=== PATIENT | female | born 1995 | race Caucasian/White ===

== ENCOUNTER → 2022-10-18 15:34 | Outpatient (CLI) | payer OTHER, SELFPAY ==
--- NOTE | 2022-10-18 15:35 | DI.US.S_ITS ---
PROCEDURE: US PELVIC COMPLETE INDICATIONS: DISPLACED IUD TECHNIQUE: Real-time scanning was performed of the pelvic organs, with image documentation. Additional endovaginal scanning was necessary due to incomplete visualization of the adnexal and endometrial structures by transabdominal scanning. COMPARISON: [facility], CR, XR ABDOMEN 1V, 10/18/2022, 15:36. FINDINGS: Uterus: Uterus is anteverted and normal in size at 7.6 x 3 x 4.4 cm. The myometrium is homogeneous. The endometrium measures 7 mm combined thickness. In this patient with this given history, scrutiny is given to the IUD. The IUD is not seen on these images. Ovaries: The right ovary measures 1.7 x 2.8 x 1.3 cm, with a calculated ovarian volume of 3.4 cc. The left ovary measures 2 x 2.7 x 1.8 cm, with a calculated ovarian volume of 4.9 cc. The ovaries have a normal sonographic appearance. Less than 12 follicles can be seen in each ovary. No adnexal masses are seen. Other: No pathologic free abdominal or pelvic fluid. IMPRESSION: No IUD is seen within the uterus. No IUD is seen elsewhere this ultrasound study. On the accompanying plain film, the IUD can be seen with a transverse orientation, just to the right of the midline, consistent with an extra-uterine location within the pelvis. We strive to produce accurate, complete, and clear reports of imaging services. To assist us in improving patient care, this report was composed using standard report templates and voice recognition software. Therefore, it may contain abnormal punctuation, insertions and/or omissions. Occasional wrong-word or sound-alike substitutions may occur. Though we review the report and make efforts to correct it, we do recommend that the report be read carefully in proper context to recognize any text inaccuracies. Dictated by: Carlos Pastrana M.D. on 10/18/2022 at 16:07 Approved by: Carlos Pastrana M.D. on 10/18/2022 at 16:10
--- NOTE | 2022-10-18 15:35 | DI.RAD.S_ITS ---
PROCEDURE: XR ABDOMEN 1V INDICATIONS: Displaced IUD not in utero per [facility] TECHNIQUE: One view of the abdomen acquired. COMPARISON: [facility], , PELVIC COMPLETE, 10/18/2022, 15:40. FINDINGS: Surgical changes and devices: Intrauterine device is projected over the mid pelvis which appears oriented transversely. Bowel: Bowel gas pattern is normal. Soft tissues: No suspicious abdominal calcifications. Visualized solid organ contours appear normal in size. Bones: No suspicious bony lesions. IMPRESSION: Intrauterine device projected over the mid pelvis which appears oriented transversely. Dictated by: Jordy Jeffers [facility] Interpreted: Alfredo Kelly MD on 10/18/2022 at 16:24 Approved by: Alfredo Kelly M.D. on 10/18/2022 at 16:44
== END ==
PROVIDERS: PCP Student in an Organized Health Care Education/Training Program; Referring Provider Obstetrics & Gynecology; Visit Provider Obstetrics & Gynecology
DX: T83.32XA Displacement of intrauterine contraceptive device, initial encounter (principal)
CPT/HCPCS: 74018; 76830; 76856

== ENCOUNTER → 2022-10-26 14:13 | Outpatient (CLI) | payer OTHER, SELFPAY ==
[2022-10-26 16:39] LABS: COVID19 -Nasal RAPID Negative (Negative)
== END ==
PROVIDERS: PCP Student in an Organized Health Care Education/Training Program; Referring Provider Obstetrics & Gynecology; Visit Provider Obstetrics & Gynecology
DX: Z01.812 Encounter for preprocedural laboratory examination (principal); Z20.822 Contact with and (suspected) exposure to COVID-19
CPT/HCPCS: 87635

== ENCOUNTER 2022-10-27 06:51 | Day surgery (SDC) | payer OTHER, SELFPAY ==
[2022-10-25 08:10] VITALS: BMI 27.1
[2022-10-27] VITALS (7 sets, daily range): BP systolic 91–120; BP diastolic 33–77; PULSE 68–102; RESP 12–18; TEMP 36.1–36.9; O2SAT 96–100; BMI 25.8
[2022-10-27] MEDS: LACTATED RINGERS 1,000 ML 42 ML IV (07:22)
--- NOTE | 2022-10-27 07:25 | P.HPOB_ITS ---
History of Present Illness History of Present Illness Narrative: Shea is a 27-year-old , LMP 09/11/2022, who presents in referral from [facility] due to displaced Mirena IUD that was placed in November 2020.? The patient was seen by her primary care in May 2022 and the Mirena IUD strings were not visible.? Abdominal flat plate 05/19/2022 shows an IUD in oblique horizontal position in the upper central pelvis with the T portion to the right and slightly superior to the proximal end which is slightly more inferiorly located.? Pelvic ultrasound 05/30/2022 demonstrated a normally anteverted uterus measuring 7-8 cm in length, 3.7 cm in width, and 3 cm in AP dimension.? There were no uterine masses or other myometrial abnormalities and the endometrial echo is normal measuring about 4 mm in maximal double wall thickness.? There is no IUD visible within the endometrial cavity or the uterus. ? Images of the studies are not available for review.? The patient has not experienced any significant abdominal pain since the IUD insertion or with the insertion itself. The imaging findings from [facility] have been confirmed by imaging here at [facility] and options reviewed for management of her displaced, intra abdominal intrauterine device and potential risks if the IUD is left in- situ.? After discussion regarding options will move forward with scheduling a laparoscopic removal of the intra-abdominal IUD.? She presents today for her scheduled surgery. [facility] Family History (Updated 09/19/22 @ 09:32 by Eamon Duran MD) Mother Breast cancer Social History household members: spouse and children Smoking Status: Never smoker alcohol intake: current Meds Home Medications and Allergies Home Medications Medication Instructions Recorded Confirmed Type No Known Home Medications 09/19/22 10/27/22 History Allergies Allergy/AdvReac Type Severity Reaction Status Date / Time No Known Drug Allergies Allergy Verified 10/27/22 07:07 Review of Systems Review of Systems Narrative: Problem-specific ROS positives included in HPI Exam Vital Signs (past 8 hours): - 10/27/22 07:11 Temperature 98.5 F Pulse Rate 68 Respiratory Rate 12 Blood Pressure 112/77 Pulse Oximetry 99 Oxygen Delivery Method Room Air Oxygen Delivery Method Room Air Const General: cooperative and comfortable Nutritional Appearance: average body habitus Orientation: alert and oriented x3 HENMT Head: normal to inspection, atraumatic and abrasion Ears: hearing grossly normal bilaterally Face and sinus: face symmetric Eyes General: appearance normal, both eyes and all related structures Conjunctivae: conjunctivae normal Sclera: sclerae normal EOM: EOM intact bilaterally Neck Neck: normal visual inspection Resp Effort & Inspection: normal respiratory effort and able to speak in complete sentences Auscultation: clear to auscultation bilaterally Cardio Rate: regular rate Rhythm: regular rhythm Heart Sounds: S1 normal, S2 normal and no murmurs GI Inspection: normal to inspection Palpation: soft and no hepatosplenomegaly External Female Exam: other (Deferred) Extrem General: no calf tenderness Psych Appearance: grossly normal Mental Status: mental status grossly normal Speech and Movement: speech and movement normal Mood: congruent mood Affect: normal affect Attitude: cooperative Thought Process: normal Thought Content: normal Judgment: judgment good Assessment & Plan Assessment and plan (1) Displacement of intrauterine contraceptive device, initial encounter: Status: Acute Plan Patient counseled regarding alternatives, risks, benefits, and potential complications associated with diagnostic laparoscopy for the retrieval of intra abdominal IUD. With full understanding of the above, a written consent was executed, signed, and witnessed this date. Time Spent With Patient Critical Care time: I spent a total of [] minutes of critical care time on this patient's care today; this time is exclusive of procedural time.
--- NOTE | 2022-10-27 07:29 | PM.PREOP ---
Pre-operative Note COVID-19 COVID-19 status: Negative Result date/Date tested (Pos, Neg/Pending): 10/26/22 Criteria for continued procedure: Non-surgical alternatives not available or appropriate per current SOC Interval Note History & Physical reviewed/Exam performed by Physician: Yes Changes to H&P: No
[2022-10-27] MEDS: BUPIVACAINE 0.5% W/ EPI (PF) 30 ML VIAL INJ (08:20)
--- NOTE | 2022-10-27 08:22 | SUR.OPER ---
Lithotomy on padded OR bed, head on pillow, arms secured on padded arm boards at <90 degrees abduction. Legs secured in padded yellow fins stirrups.
--- NOTE | 2022-10-27 08:57 | P.OP_ITS ---
Operative Date/Time/Diagnoses Date of procedure: 10/27/22 Time of procedure: 08:05 Pre-op diagnosis: Malpositioned (intra-abdominal) intrauterine device Post-op diagnosis: same Procedure & Clinicians Procedure: Procedures Operation Date: 10/27/22 07:45 Actual Procedure Side Surgeon stacy Laparoscopy with removal of intra-abdominal IUD Eamon Duran MD Indications: Shea is a 27-year-old , LMP , who presents in referral from [facility] due to displaced Mirena IUD that was placed in [facility] 2020.? The patient was seen by her primary care in May 2022 and the Mirena IUD strings were not visible.? Abdominal flat plate 05/19/2022 shows an IUD in oblique horizontal position in the upper central pelvis with the T portion to the right and slightly superior to the proximal end which is slightly more inferiorly located.? Pelvic ultrasound 05/30/2022 demonstrated a normally anteverted uterus measuring 7-8 cm in length, 3.7 cm in width, and 3 cm in AP dimension.? There were no uterine masses or other myometrial abnormalities and the endometrial echo is normal measuring about 4 mm in maximal double wall thickness.? There is no IUD visible within the endometrial cavity or the uterus.? Images of the studies are not available for review.? The patient has not experienced any significant abdominal pain since the IUD insertion or with the insertion itself.? The imaging findings from [facility] have been confirmed by imaging here at [facility] and options reviewed for management of her d isplaced, intra abdominal intrauterine device and potential risks if the IUD is left in-situ.? After discussion regarding options will move forward with scheduling a laparoscopic removal of the intra-abdominal IUD.? She presents today for her scheduled surgery. Surgeon: Eamon Duran Anesthesia Type: General Operative Notes Findings: Normal pelvic anatomy. An intact Mirena seem to be entangled inferior omentum. The remainder intra-abdominal anatomy is normal. Closure Type: primary Specimen(s): none Applied: catheter (Straight catheterization at the beginning of procedure) Estimated blood loss (mL): 5 Blood products transfused: none Procedure in detail: With the patient under satisfactory general anesthesia in the modified dorsal lithotomy position, perineum, and abdomen were prepped and draped in the usual manner for laparoscopy. A pre-surgical safety time-out then taken in accordance with [facility] Main OR protocols. No uterine manipulator was placed but instead attention was turned to infiltration the umbilicus with 0.5% Marcaine with epinephrine. A 1 cm vertical incision of the skin of the lower umbilicus was made and a Veress needle was used to insufflate the abdomen with carbon dioxide. Once appropriately insufflated, a 5 mm trocar and sleeve were placed in the umbilical incision and confirmation of correct placement was performed with her laparoscopic. A 2nd and 3rd 5 mm port was placed in the left and right mid quadrants in a similar manner and the abdomen was inspected carefully with the findings as noted above. The IUD was easily visualized and teased free of the omentum with a pair of atraumatic grasping forceps and once free of the omentum, intact IUD was removed through one of the 5 mm ports. The pelvis and abdomen were inspected again and there was no evidence of bleeding other abnormality. Point the pneumoperitoneum was vented and ports removed. The laparoscopy port incisions were then closed 4-0 Monocryl using inverted interrupted stitches and skin glue was applied to incision. Appropriate dressings were applied and the procedure terminated. Patient was awakened and transported to the PACU for a period of observation and recovery after having tolerated the procedure well. Complications: none Post-operative Condition: stable Disposition: PACU Plan for aftercare: Routine postoperative care with follow-up plan 2 weeks postop
[2022-10-27] MEDS: ONDANSETRON 4 MG/2 ML INJ IV (09:24)
[2022-10-27] MEDS: LACTATED RINGERS 1,000 ML 200 ML IV (09:25)
[2022-10-27] MEDS: ePHEDrine 50 MG/ML VIAL IM (11:07)
== END 2022-10-27 11:30 | disposition home or self-care (01) ==
PROVIDERS: PCP Student in an Organized Health Care Education/Training Program; Referring Provider Obstetrics & Gynecology; Visit Provider Obstetrics & Gynecology
PROC: (CPT 49320; principal; 2022-10-27 07:45)
DX: T83.32XA Displacement of intrauterine contraceptive device, initial encounter (principal)
CPT/HCPCS: 49329; 81025; J1100; J1885; J2250; J2405; J2704; J3010

== ENCOUNTER → 2023-09-07 10:16 | Outpatient (CLI) | payer OTHER, SELFPAY ==
--- NOTE | 2023-09-07 10:17 | DI.US.S_ITS ---
PROCEDURE: US OB <= 14 WEEKS FETUS INDICATIONS: dating and viability OUTSIDE/PRIOR DATING DATA: Last menstrual period (LMP): 06/26/2023. LMP-based estimated date of delivery (EDILSON): 04/01/2024. First dating scan (date and location): 09/07/2023. Estimated date of delivery (EDILSON) from first dating scan: 04/07/2024. The calculations are made using the ultrasound EDILSON of 04/07/2024. TECHNIQUE: Real-time scanning was performed of the fetus and maternal pelvic organs, with image documentation. COMPARISON: None. FINDINGS: Embryo: [place]-rump length measures 2.7 cm, 9 weeks 4 days Heart rate: 157 beats per minute Maternal organs: Right ovary unremarkable. Left ovary not identified. IMPRESSION: Living early 1st trimester intrauterine , with crown-rump length and heartbeat. We strive to produce accurate, complete, and clear reports of imaging services. To assist us in improving patient care, this report was composed using standard report templates and voice recognition software. Therefore, it may contain abnormal punctuation, insertions and/or omissions. Occasional wrong-word or sound-alike substitutions may occur. Though we review the report and make efforts to correct it, we do recommend that the report be read carefully in proper context to recognize any text inaccuracies. Dictated by: Geo Knutson M.D. on 09/07/2023 at 12:55 Approved by: Geo Knutson M.D. on 09/07/2023 at 12:58
== END ==
PROVIDERS: PCP Student in an Organized Health Care Education/Training Program; Referring Provider Obstetrics & Gynecology; Visit Provider Obstetrics & Gynecology
DX: Z34.81 Encounter for supervision of other normal pregnancy, first trimester (principal); Z3A.09 9 weeks gestation of pregnancy
CPT/HCPCS: 76801; 93976

== ENCOUNTER → 2023-10-03 10:43 | Outpatient (CLI) | payer OTHER, SELFPAY ==
[2023-10-03 12:18] LABS: Add Manual Diff / Slide Review NO; Basophils Absolute Auto 0 /uL (0-100); Basophils Percent Auto 0.5 % (0-2); Eosinophils Absolute Auto 0 /uL (0-450); Eosinophils Percent Auto 0.4 % (2-4); Lymphocytes Absolute Auto 1400 /uL (1100-4500); Lymphocytes Percent Auto 13.9 % (25-40); Mean Corpuscular HGB Conc 33.4 % (30-36); Mean Corpuscular Hemoglobin 27.5 PG (26-34); Mean Corpuscular Volume 82.5 fL (80-100); Monocytes Absolute Auto 800 /uL (0-900); Monocytes Percent Auto 7.5 % (3-14); Neutrophils Absolute Auto 7900 /uL (1500-7000); Neutrophils Percent Auto 77.7 % (50-75); Platelet Count 399 X10^3/uL (150-400); Red Blood Cell Count 4.36 X10^6/uL (4.0-5.2); Red Cell Distribution Width 13.8 % (11.6-14.8); White Blood Cell Count 10.1 X10^3/uL (4.5-11.0)
[2023-10-03 12:44] LABS: Alanine Aminotransferase 23 IU/L (<35); Aspartate Aminotransferase 21 IU/L (14-36); BUN Creatinine Ratio 17.3 (6-22); Blood Urea Nitrogen 9 mg/dL (7-17); Estimated Glomerular Filt Rate > 60 mL/min (>60); Uric Acid 2.2 mg/dL (2.5-6.2)
[2023-10-03 20:19] LABS: Urine N gonorrhoeae NOT DETECTED
[2023-10-03 20:23] LABS: Urine Chlamydia NOT DETECTED
[2023-10-04 06:36] LABS: RPR Screen Non Reactive (Non Reactive)
[2023-10-04 08:54] LABS: Varicella IgG Antibody 659 index (Immune >165)
[2023-10-04 16:38] LABS: HIV 1 & 2 Ab/Ag 4th Gen Combo NEGATIVE (NEGATIVE); Hep C Virus Ab w/Reflex Quant NEGATIVE s/c (NEGATIVE); Hepatitis B Surface Antigen NEGATIVE s/c (NEGATIVE); Rubella Antibody IgG 14.5 IU/mL (>15)
== END ==
PROVIDERS: PCP Student in an Organized Health Care Education/Training Program; Referring Provider Obstetrics & Gynecology; Visit Provider Obstetrics & Gynecology
DX: Z34.80 Encounter for supervision of other normal pregnancy, unspecified trimester (principal); Z87.59 Personal history of other complications of pregnancy, childbirth and the puerperium; Z34.81 Encounter for supervision of other normal pregnancy, first trimester; Z3A.13 13 weeks gestation of pregnancy
CPT/HCPCS: 36415; 80055; 82565; 84450; 84460; 84520; 84550; 86787; 86803; 86850; 86900; 86901; 87389; 87491; 87591

== ENCOUNTER → 2023-11-02 14:14 | Outpatient (CLI) | payer OTHER, SELFPAY ==
[2023-11-08 21:42] LABS: AFP, Serum 28.9 ng/mL (.); Estriol, Free 1.76 ng/mL (.); Inhibin A, MoM 0.85 (.); Maternal Ethnicity Caucasian (.); Maternal Weight 165 lbs (.); Number of Fetuses No (.); OSBR Risk 1 IN 10000 (.); Results Report (.); Test Results *Screen Negative* (.); hCG, Serum 26693 mIU/mL (.)
== END ==
PROVIDERS: PCP Student in an Organized Health Care Education/Training Program; Referring Provider Obstetrics & Gynecology; Visit Provider Obstetrics & Gynecology
DX: Z34.02 Encounter for supervision of normal first pregnancy, second trimester (principal); Z3A.17 17 weeks gestation of pregnancy
CPT/HCPCS: 36415; 82105; 82677; 84702; 86336

== ENCOUNTER → 2023-11-21 10:14 | Outpatient (CLI) | payer OTHER, SELFPAY ==
--- NOTE | 2023-11-21 10:30 | DI.US.S_ITS ---
PROCEDURE: US OB >= 14 WEEKS FETUS INDICATIONS: 20 week anatomy scan OUTSIDE/PRIOR DATING DATA: Last menstrual period (LMP): 06/26/2023. LMP-based estimated date of delivery (EDILSON): 04/01/2024. First dating scan (date and location): 09/07/2023. Estimated date of delivery (EDILSON) from first dating scan: 04/07/2024. The calculations are made using the clinical EDILSON of 04/01/2024. TECHNIQUE: Real-time scanning was performed of the fetus, with image documentation and biometric measurements. Endovaginal scanning: Performed COMPARISON: None. FINDINGS: General: A single living intrauterine gestation is present. Presentation: Vertex. Placenta: Placental position is posterior , without previa. Amniotic fluid index: 15.9 cm, normal range is 5-24 cm. Single deepest vertical pocket is 4.8 cm. heart rate: 140 beats per minute. Maternal cervical canal: 4.7 cm long. Normal lower limit is 2.5 cm. biometrics: Biparietal diameter: 4.8 centimeters, 20 weeks 4 days Head circumference: 18.2 centimeters, 20 weeks 4 days Abdominal circumference: 15.9 centimeters, 21 weeks 0 days Femur length: 3.5 centimeters, 21 weeks 1 day Clinically estimated gestational age: 21 weeks 1 day Composite gestational age from present scan: 20 weeks 6 days Estimated weight and percentile: 393 grams, 38th percentile Anatomic survey: Neuro: Ventricles are non-dilated at less than 10 mm. Complex choroid plexus cyst measuring 7 x 4 x 5 millimeters. Cisterna magna is normal at 3-11 mm. Cerebellum is normal in size and morphology. Nuchal skin fold: Normal at less than 6 mm between 14-21 weeks gestational age. Face: Nose and lips, facial profile are normal. Spine: No evidence for spina bifida. Heart: 4-chambered heart is present, with normal ventricular outflow tracts. Diaphragm: Diaphragm is intact. Stomach: Left-sided stomach is present. Kidneys: No hydronephrosis. Normal is less than 5 mm in 2nd trimester, less than 7 mm in 3rd trimester. Cord: 3-vessel cord has orthotopic insertion. Bladder: Normal in size. Extremities: All 4 extremities identified. IMPRESSION: 1. Single live intrauterine consistent with 20 weeks and 6 days. 2. Left complex choroid plexus cyst measuring 7 millimeters. In isolation, simple choroid plexus cysts have no associated risk of aneuploidy. However, given complex nature of the cyst, recommend aneuploidy screening and follow-up ultrasound. 3. The remainder of the anatomic survey is within normal limits. We strive to produce accurate, complete, and clear reports of imaging services. To assist us in improving patient care, this report was composed using standard report templates and voice recognition software. Therefore, it may contain abnormal punctuation, insertions and/or omissions. Occasional wrong-word or sound-alike substitutions may occur. Though we review the report and make efforts to correct it, we do recommend that the report be read carefully in proper context to recognize any text inaccuracies. Dictated by: Bernardino Sosa M.D. on 11/21/2023 at 15:24 Approved by: Bernardino Sosa M.D. on 11/21/2023 at 15:31
== END ==
LOC: US 10:14
PROVIDERS: PCP Student in an Organized Health Care Education/Training Program; Referring Provider Obstetrics & Gynecology; Visit Provider Obstetrics & Gynecology
DX: Z34.82 Encounter for supervision of other normal pregnancy, second trimester (principal); Z3A.20 20 weeks gestation of pregnancy
CPT/HCPCS: 76811

== ENCOUNTER → 2024-01-25 11:09 | Outpatient (CLI) | payer OTHER, SELFPAY ==
[2024-01-25 12:57] LABS: Hematocrit 28.5 % (36-46); Hemoglobin 9.5 g/dL (12.0-16.0)
[2024-01-25 13:29] LABS: GTT (PREG) 1 Hour PP 50gm Dose 74 mg/dL (76-139)
== END ==
PROVIDERS: PCP Student in an Organized Health Care Education/Training Program; Referring Provider Obstetrics & Gynecology; Visit Provider Obstetrics & Gynecology
DX: O35.03X0 Maternal care for (suspected) central nervous system malformation or damage in fetus, choroid plexus cysts, not applicable or unspecified (principal); Z3A.27 27 weeks gestation of pregnancy
CPT/HCPCS: 82950; 85014; 85018

== ENCOUNTER → 2024-02-06 11:27 | Outpatient (CLI) | payer OTHER, SELFPAY ==
[2024-02-08 12:47] LABS: HEMOLYSIS < 15 (0-50); Iron 70 ug/dL (37-170)
[2024-02-08 12:59] LABS: Percent Iron Saturation 13 % (15-50); Total Iron Binding Capacity 543 ug/dL (265-497); Transferrin 472 mg/dL (206-381)
== END ==
PROVIDERS: PCP Student in an Organized Health Care Education/Training Program; Referring Provider Obstetrics & Gynecology; Visit Provider Obstetrics & Gynecology
DX: O99.019 Anemia complicating pregnancy, unspecified trimester (principal)
CPT/HCPCS: 83540; 83550

== ENCOUNTER → 2024-03-14 14:15 | Outpatient (CLI) | payer OTHER, SELFPAY ==
[2024-03-15 15:38] LABS: Strep Grp B PCR NEG for Grp B Strep
== END ==
PROVIDERS: PCP Student in an Organized Health Care Education/Training Program; Visit Provider Obstetrics & Gynecology
DX: Z34.83 Encounter for supervision of other normal pregnancy, third trimester (principal); Z3A.36 36 weeks gestation of pregnancy
CPT/HCPCS: 87653

== ENCOUNTER → 2024-03-28 14:00 | Outpatient (CLI) | payer OTHER, SELFPAY | PROVIDERS: PCP Student in an Organized Health Care Education/Training Program; Visit Provider Obstetrics & Gynecology | DX: R82.998 Other abnormal findings in urine (principal) | CPT/HCPCS: 87086 ==

== ENCOUNTER → 2024-04-02 12:09 | Outpatient (CLI) | payer OTHER, SELFPAY | PROVIDERS: PCP Student in an Organized Health Care Education/Training Program; Visit Provider Obstetrics & Gynecology | DX: R82.998 Other abnormal findings in urine (principal) | CPT/HCPCS: 87086 ==

== ENCOUNTER 2024-04-08 10:49 | Outpatient (CLI) | payer OTHER, SELFPAY | END 2024-04-08 11:40 | disposition home or self-care (01) | LOC: LABOR 11:14 → OB 04-09 11:44 | PROVIDERS: PCP Student in an Organized Health Care Education/Training Program; Referring Provider Obstetrics & Gynecology; Visit Provider Obstetrics & Gynecology | DX: O48.0 Post-term pregnancy (principal); Z3A.40 40 weeks gestation of pregnancy | CPT/HCPCS: 59025; G0378; G0379 ==

== ENCOUNTER 2024-04-10 16:19 | Inpatient (IN) | payer OTHER, SELFPAY ==
--- NOTE | 2024-04-10 17:41 | P.HPOB_ITS ---
OB HPI Date/Time Date of admission: 04/10/24 Date Patient Seen: 04/10/24 Time Patient Seen: 17:41 History of Present Condition Chief complaint: DELIVERY : 2 Para: 1 Estimated Date of Delivery: 04/07/24 Estimated Gestational Age (weeks): 40w3d Narrative: Shea Araujo is a 28 year old presenting with SROM. ROm was at 1500 wtih clear fluid. She was lying in bed when she felt fluid upon turning over. She soaked through multiple pairs of underwear and decided to come to triage. She has had a complicated by hx of Pre-E on ASA but no signs of pre-E with this . BPs normotensive on arrival. She was checked in clinic 2 days ago at which time she was fingertip/85/-1/posterior/intermediate (BS=7). Since time of rupture she has started feeling contractions and they are getting stronger. Now ocuring every 4-5 min regularly Indications Other reason(s) for admission: Spontaneous rupture of membranes at term History of Present care: good care Dating criteria: based on 1st trimester US only Obstetrical complications: none Medical complications: none Preadmission Labs Blood type: A (+) positive -: Antibody screen: negative, Cystic fibrosis screen: unknown, GBS status: negative, HBsAG: negative, HIV: negative, HSV 1: negative, HSV 2: negative and RPR/VDLR: negative -: Chlamydia screen: not detected and Gonorrhea screen: not detected -: Rubella: not immune and Varicella: immune HCT: 98 HCAB: negative PAP: Normal Quad screen: Normal 1 hr GTT: 74 Prior (ies) History: One prior , delivery in [place]. Complicated by Pre-E. otherwise uncomplicated Evaluation Evaluation Baseline heart rate: 120 Variability: Moderate (11-25) monitor accelerations: Present Monitor Decelerations: Absent Contraction Frequency (minutes): 4 Category of Tracing: Reactive Status: Category l Dilation (cm): 1 Effacement (%): 80 Dilation: 1-2 cm Effacement: >/=80% station: -1 [facility] Medical History (Updated 03/05/24 @ 14:36 by Eamon Duran MD) Clavicle fracture (~1997) Displacement of intrauterine contraceptive device, initial encounter Perforation of uterus PONV (postoperative nausea and vomiting) (~2022) Surgical History (Updated 11/14/22 @ 17:16 by Eamon Duran MD) History of laparoscopy Family History (Updated 09/05/23 @ 10:10 by Anastasiia Roach RN) Mother Breast cancer Hypothyroidism Father Hypertension Hyperlipidemia Grandmother Myasthenia gravis Aunt Hypothyroidism Grandmother Rheumatoid arthritis Bladder cancer Aunt Anxiety Depression Grandfather Heart disease S/P CABG x 4 Social History marital status: number of children: 1 household members: spouse and children lives independently: Yes caregiver/support person: Yes housing: house pets and animals: Yes (1 dog) education level: college (bachelor's degree) 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[employer]) current occupational exposures/hazards: No special marci needs: No travel history: recent (domestic only) seatbelt use: always helmet use: Yes water heater temp set < 120 deg: Yes working smoke detector in home: Yes fire extinguisher in home: No carbon monox detector in home: Yes firearms in home: Yes firearms unloaded and locked: Yes do you feel safe at home: Yes Smoking Status: Never smoker second hand exposure: No alcohol intake: former (occasionally when not ) substance use type: does not use during the past year weight has: remained stable well-balanced diet: daily or most days daily servings fruits/ve-4 caffeine: Yes (occasional tea or diet soda) Type(s) of exercise: walking and bicycling frequency: 1-2 times per week Meds Home Medications and Allergies Home Medications Medication Instructions Recorded Confirmed Type vitamin-ferrous sulfate tab PO 09/05/23 04/08/24 History 27 mg iron-folic acid 0.8 mg tablet ondansetron 8 mg disintegrating 8 mg PO Q8H PRN nausea and 10/03/23 04/08/24 Rx tablet vomiting #20 tabs aspirin 81 mg tablet,delayed 81 mg PO DAILY 03/05/24 04/08/24 History release (Adult Aspirin Regimen) omeprazole magnesium 10 mg oral 10 mg PO DAILY 03/05/24 04/08/24 History suspension,delayed release (Prilosec) Allergies Allergy/AdvReac Type Severity Reaction Status Date / Time No Known Drug Allergies Allergy Verified 04/08/24 10:29 Review of Systems Review of Systems Narrative: No nausea No WOLFE No Vision changes No RUQ pain + LOF OB Exam Vital signs Blood Pressure: 129/70 Pulse Rate: 88 Temperature: 97.2 F Narrative Exam Narrative: GEN: Healthy appearing, well-developed, NAD, sitting on birthing ball eating dinner PSYCH: Good Judgment. AOx3. Normal memory, mood, and affect HEENT: -Head: NC/AT -Eyes: No discharge or redness CV: warm and well perfused LUNGS: breathing comfortably on RA ABd: gravid SKIN: Warm, well perfused. No skin rashes or abnormal lesions MSK: No deformities NEURO: No focal deficits Assessment and Plan Assessment and Plan Assessment and Plan narrative: Shea Araujo is a 28 year old presenting with SROM. ROm was at 1500 with clear fluid. - Expectant management - If no change in 3-4 hours will start Pitocin - GBS negative, no ppx needed - CBC, CMP, TS pending - Trend BPs
[2024-04-10 17:49] LABS: Add Manual Diff / Slide Review NO; Basophils Absolute Auto 0 /uL (0-100); Basophils Percent Auto 0.3 % (0-2); Eosinophils Absolute Auto 0 /uL (0-450); Eosinophils Percent Auto 0.2 % (2-4); Hematocrit 30.4 % (36-46); Hemoglobin 9.8 g/dL (12.0-16.0); Lymphocytes Absolute Auto 1800 /uL (1100-4500); Lymphocytes Percent Auto 17.1 % (25-40); Mean Corpuscular HGB Conc 32.4 % (30-36); Mean Corpuscular Volume 77.1 fL (80-100); Monocytes Absolute Auto 700 /uL (0-900); Monocytes Percent Auto 6.6 % (3-14); Neutrophils Absolute Auto 8100 /uL (1500-7000); Neutrophils Percent Auto 75.8 % (50-75); Platelet Count 356 X10^3/uL (150-400); Red Blood Cell Count 3.95 X10^6/uL (4.0-5.2); Red Cell Distribution Width 16.9 % (11.6-14.8); White Blood Cell Count 10.7 X10^3/uL (4.5-11.0)
[2024-04-10 18:20] VITALS: BP 129/70; PULSE 88; TEMP 36.2
[2024-04-11] MEDS: ONDANSETRON 4 MG/2 ML INJ IV ×2 (03:00→08:44)
[2024-04-11] MEDS: OXYTOCIN PREMIX 30 UNIT/500 ML PLAST..BAG IV (04:47)
[2024-04-11] MEDS: LACTATED RINGERS 1,000 ML 100 ML IV ×2 (04:47→08:44)
[2024-04-11] MEDS: METOCLOPRAMIDE 10 MG/2 ML INJ 5 MG IV (06:09)
--- NOTE | 2024-04-11 07:21 | P.PCN_ITS ---
[facility] Pre-procedure PMH/ROS narrative: term SROM, no complications. Hx of preeclampsia with previous . No S/S this . Normotensive. ASA Class: II Labs: Hct 30.4 % (36-46) L 04/10/24 17:37 Plt Count 356 X10^3/uL (150-400) 04/10/24 17:37 Medications: Current Medications Generic Name Dose Route Start Last Admin Trade Name Freq PRN Reason Stop Dose Admin Carboprost Tromethamine 250 mcg 04/10/24 17:37 Carboprost 250 Mcg/Ml Ampul IM Q90M PRN Bleeding Diphenhydramine HCl 25 mg 04/11/24 07:20 Diphenhydramine 50 Mg/Ml Vial IV Q10M PRN Pruritis Oxytocin/Lactated Ringer's 30 unit in 500 mls @ 200 mls/hr 04/10/24 17:37 Oxytocin Premix IV CONT PRN Bleeding Protocol Tranexamic Acid 1,000 mg/ 100 mls @ 200 mls/hr 04/10/24 17:37 Sodium Chloride IV NOW PRN Bleeding Lactated Ringer's 1,000 mls @ 100 mls/hr 04/10/24 17:45 04/11/24 04:47 Lactated Ringers IV 100 mls/hr CONT LYNN Administration Oxytocin/Lactated Ringer's 30 unit in 500 mls @ 2 mls/hr 04/10/24 18:10 04/11/24 04:47 Oxytocin Premix IV 2 milliunit/min TITRATE LYNN 2 mls/hr Administration Protocol 2 MILLIUNIT/MIN FENT 2MCG/ML BUPIV 0.125% EPI 200 mcg in 100 mls @ 6 mls/hr 04/11/24 07:30 Fentanyl/Bupiv/Ns 2mcg/Ml - 0.125% EPIDURAL CONT LYNN Lidocaine HCl 20 ml 04/10/24 17:37 Lidocaine 1% 20 Ml INJ INTRA-OP PRN Post Delivery Methylergonovine Maleate 0.2 mg 04/10/24 17:37 Methylergonovine 0.2 Mg Tablet PO Q6HR PRN Heavy Bleeding Methylergonovine Maleate 0.2 mg 04/10/24 17:37 Methylergonovine 0.2 Mg/Ml Vial IM NOW PRN Bleeding Metoclopramide HCl 5 mg 04/11/24 05:51 04/11/24 06:09 Metoclopramide 10 Mg/2 Ml Inj IV 5 mg Q6HR PRN Administration Nausea And Vomiting Misoprostol 800 mcg 04/10/24 17:37 Misoprostol 200 Mcg Tablet IN NOW PRN Bleeding Misoprostol 400 mcg 04/10/24 17:37 Misoprostol 200 Mcg Tablet SL NOW PRN Bleeding Nalbuphine HCl 2.5 mg 04/11/24 07:20 Nalbuphine 20 Mg/Ml Ampul IV Q10M PRN Pruritis Naloxone HCl 0.2 mg 04/10/24 17:37 Naloxone 0.4 Mg/Ml Vial IV Q2MIN PRN Opiate Reversal Ondansetron HCl 4 mg 04/10/24 18:31 04/11/24 03:00 Ondansetron 4 Mg/2 Ml Inj IV 4 mg Q4HR PRN Administration Nausea And Vomiting Oxytocin 10 unit 04/10/24 17:37 Oxytocin 10 Unit/Ml Vial IM NOW PRN Bleeding Sodium Chloride 10 ml 04/10/24 21:00 Sodium Chloride 0.9% Flush IV BID LYNN Sodium Chloride 10 ml 04/10/24 17:37 Sodium Chloride 0.9% Flush IV PRN PRN Flush Sodium Chloride 10 ml 04/11/24 09:00 Sodium Chloride 0.9% Flush IV BID LYNN Sodium Chloride 10 ml 04/11/24 07:20 Sodium Chloride 0.9% Flush IV PRN PRN Flush Allergies: Allergies Allergy/AdvReac Type Severity Reaction Status Date / Time No Known Drug Allergies Allergy Verified 04/08/24 10:29 Procedure Insertion date: 04/11/24 Insertion time: 07:36 Prep/Local: betadine x3 and 1% lidocaine Interspace: L3-4 Patient position: sitting Needle: 18 gauge Kodabletead (CSE: 27g Pencan through Hustead, clear CSF, 1mL 0.25% MPF bupiv.) Loss of resistance with: saline EVELINA at (cm): 5 Catheter placed at SKIN (cm): 11 Catheter in SPACE (cm): 6 Insertion: No CSF, No Blood, No Paresthesia with insertion, No Paresthesia with injection and No Test dose reaction Initial Medications TEST DOSE time: 07:37 TEST DOSE: 1.5% lidocaine with epinephrine 1:200k (mL): 3 BOLUS DOSE time: 07:47 BOLUS DOSE (mL): 4 BOLUS DOSE med: other (infusate) Infusion INFUSION: 0.125% bupivacaine and with fentanyl 2 mcg/mL Initial rate (mL/hr): 8 Subsequent interventions: PCEA@8+4 Post-procedure Anesthesia date START: 04/11/24 Anesthesia time START: 07:27 Anesthesia date END: 04/11/24 Anesthesia time END: 13:43 Post-procedure Anesthesia Assessment: Yes CV function: HR/BP stable, Yes Resp function: RR/sat/airway adequate, Yes Post-op hydration adequate, Yes Pain control adequate, Yes Nausea & vomiting absent, Yes Temperature > 36 C, Yes Mental status appropriate and No Anesthesia complications
--- NOTE | 2024-04-11 13:49 | PM.OBPRVD ---
Labor & Delivery Delivery date: 04/11/24 Intrapartal Events: None Cervical ripening method: none Induction method: none Delivery augmentation: pitocin Delivery monitor: external FHT and external uterine Route of delivery: Episiotomy description: None L&D Laceration Description: Periurethral - 1st Degree Estimated blood loss (mL): 275 Anesthesia Type: Epidural Complications: None Narrative: Following a 21 minute 2nd stage, the patient delivered spontaneously over an intact perineum a viable male with Apgars of 9/9 and a weight of 8 lb 8.9 oz (3881 g) a single loose nuchal cord was noted and reduced with delivery of the shoulders. No shoulder dystocia was encountered. Skin to skin contact was initiated immediately upon delivery. Delayed cord clamping performed. Once the umbilical cord was doubly clamped and cut, a sample of cord blood was submitted for routine studies. Delivery of the placenta was accomplished with gentle cord traction and suprapubic countertraction. Intravenous Pitocin was initiated following separation bleed and post delivery bleeding was easily brought under control. Inspection of the placenta following delivery showed it to be intact with a previously undiagnosed marginal insertion. Inspection of the perineum showed no significant lacerations but a very superficial left-sided periurethral abrasion which did not require reapproximation and was not bleeding. Sponge, instrument, and needle count was correct at the completion of the delivery process which was well tolerated by both mother and baby. Baby 1: Infant gender: Male Presentation: vertex Position: Left Occiput Anterior Placenta delivery description: Spontaneous and Abnormal Configuration (Marginal cord insertion) Cord Vessel Description: 3 Vessels and Nuchal Cord (Loose, x1) score (1 min): 9 weight: 8 lb 8.898 oz Plan for aftercare: Routine care
[2024-04-11] MEDS: IBUPROFEN 600 MG TABLET PO (19:46)
[2024-04-12] MEDS: ACETAMINOPHEN 325 MG TABLET 650 MG PO ×2 (02:40→14:54)
[2024-04-12 06:15] LABS: Add Manual Diff / Slide Review NO; Basophils Absolute Auto 100 /uL (0-100); Basophils Percent Auto 0.5 % (0-2); Eosinophils Absolute Auto 100 /uL (0-450); Eosinophils Percent Auto 0.6 % (2-4); Hematocrit 28.8 % (36-46); Hemoglobin 9.3 g/dL (12.0-16.0); Lymphocytes Absolute Auto 1900 /uL (1100-4500); Lymphocytes Percent Auto 15.6 % (25-40); Mean Corpuscular HGB Conc 32.2 % (30-36); Mean Corpuscular Hemoglobin 24.5 PG (26-34); Mean Corpuscular Volume 76.2 fL (80-100); Monocytes Absolute Auto 900 /uL (0-900); Monocytes Percent Auto 7.5 % (3-14); Neutrophils Absolute Auto 9100 /uL (1500-7000); Neutrophils Percent Auto 75.8 % (50-75); Platelet Count 308 X10^3/uL (150-400); Red Blood Cell Count 3.78 X10^6/uL (4.0-5.2); Red Cell Distribution Width 17.2 % (11.6-14.8)
[2024-04-12] MEDS: DOCUSATE 100 MG CAPSULE PO (08:05)
[2024-04-12] MEDS: IBUPROFEN 600 MG TABLET PO (08:05)
--- NOTE | 2024-04-12 10:06 | P.DS_ITS ---
Discharge Providers Provider Date of admission: 04/10/24 16:19 Discharge Date: 04/12/24 Primary care physician: Kelby Hamm MD Consults: 04/10/24 17:37 Consult to Anesthesiology Urgent Comment: Consulting Provider: Gary Orr Reason for consultation: Epidural 04/12/24 13:46 Consult to Senior Information Developer Routine Comment: Discharge provider: Eamon Duran MD Summary Hospital Course Date Patient Seen: 04/12/24 Time Patient Seen: 10:07 Diagnoses: Intrauterine gestation, 40+ 4 weeks, delivered by spontaneous vaginal GBS negative status Hospital Course: Late on the evening of 04/10/2024, [place] was admitted with spontaneous rupture of membranes and permitted to enter labor spontaneously. Her contractions however decreased in frequency and intensity and early on the morning of 04/11/2024, Pitocin augmentation was initiated. Continuous lumbar epidural anesthesia was obtained and provided excellent relief. She delivered on the afternoon of 04/11/2024 a viable male infant with Apgars of 9/9 and weight of 3881 g (8 lb 8.9 oz). She sustained a very superficial left periurethral abrasion which did not require repair. Following delivery both mother and baby have done extremely well with the mother experiencing prompt return of bowel and bladder function, she is ambulating independently, tolerating a regular diet, and her pain is well relieved with oral pain medication. She will be discharged at this time to home in an afebrile normotensive condition after counseling regarding precautionary symptoms, limitations of activity, and plans for follow- up which will be in 6 weeks. Medications at discharge will include resumption of all preadmission medications and she will use [id number] Tylenol as well as [id number] ibuprofen as needed for pain Peripartum Data Delivery Method: Natural Vaginal Laceration Description: Periurethral - 1st Degree Episiotomy description: None Procedures: Continuous lumbar epidural Spontaneous vaginal delivery complications: none [place] 1: Gender: Male Disposition of : home Status at Discharge Cognitive/behavioral status at discharge: oriented Functional status at discharge: independent ambulation Overall status at discharge: patient is progressing back to baseline Time Spent with Patient Time attestation: Total time spent providing and/or coordinating discharge services: Time spent: Less than 30 minutes Objective Labs 04/12/24 06:07 Labs: Laboratory Results - last 24 hr 04/12/24 06:07 WBC 12.0 H RBC 3.78 L Hgb 9.3 L Hct 28.8 L MCV 76.2 L MCH 24.5 L MCHC 32.2 RDW 17.2 H Plt Count 308 Neut % (Auto) 75.8 H Lymph % (Auto) 15.6 L [place] % (Auto) 7.5 Eos % (Auto) 0.6 L Baso % (Auto) 0.5 Neut # (Auto) 9100 H Lymph # (Auto) 1900 [place] # (Auto) 900 Eos # (Auto) 100 Baso # (Auto) 100 Exam Const General: cooperative and comfortable Nutritional Appearance: average body habitus Orientation: alert and oriented x3 HENMT Head: normal to inspection, atraumatic and abrasion Ears: hearing grossly normal bilaterally Face and sinus: face symmetric Eyes General: appearance normal, both eyes and all related structures Conjunctivae: conjunctivae normal Sclera: sclerae normal EOM: EOM intact bilaterally Neck Neck: normal visual inspection Resp Effort & Inspection: normal respiratory effort and able to speak in complete sentences GI Inspection: normal to inspection Palpation: soft and no hepatosplenomegaly External Female Exam: other (No significant bleeding noted) Extrem General: no calf tenderness Psych Appearance: grossly normal Mental Status: mental status grossly normal Speech and Movement: speech and movement normal Mood: congruent mood Affect: normal affect Attitude: cooperative Thought Process: normal Thought Content: normal Judgment: judgment good Discharge Plan Discharge Plan Patient Disposition: Home Provider Discharge Comment: Please review the written instructions you received when you were discharged from the hospital. Your follow-up appointment is scheduled for 6 weeks after delivery and I look forward to seeing you then. If however in the meanwhile you have any issues, concerns, or questions, please contact me either through the office phone at [phone], or via the patient portal. Discharge orders & Medications Prescriptions: Continued Prilosec 10 mg susp,delayed release for recon 10 mg PO DAILY aspirin [Adult Aspirin Regimen] 81 mg tablet,delayed release (DR/EC) 81 mg PO DAILY ondansetron 8 mg tablet,disintegrating 8 mg PO Q8H PRN (Reason: nausea and vomiting) Qty: 20 3RF vit-ferrous sulfat-FA 27 mg iron- 0.8 mg tablet PO Follow up/Referrals: Eamon Duran MD [Physician] - 05/22/24 1:30 pm Discharge Health Status Multidrug resistant organism: No MDRO Diet/Activity/Treatments Diet: Diet as Tolerated Activity: As tolerated Other treatments: [id number] Tylenol and/ or ibuprofen may be used as needed for pain relief. [id number]-[id number]-swseeym stool softeners and/ or MiraLax may be used as needed for constipation. Skin/Wound/Dressing Care Report to your healthcare provider any signs of infection, such as:: chills, fever, increased pain, unusual drainage and unusual redness Dressing: N/A Visit Report/Discharge Packet Instructions: DI for Labor and Delivery, Vaginal , DI for and Nipple Soreness Discharge Data Primary Care Provider: Kelby Hamm
[2024-04-12 14:18] VITALS: BP 129/70
[2024-04-12 15:32] VITALS: BP 123/75; PULSE 57; RESP 18; TEMP 36.7
== END 2024-04-12 15:39 | disposition home or self-care (01) | DRG 807 ==
PROVIDERS: Admitting Provider Obstetrics & Gynecology; PCP Student in an Organized Health Care Education/Training Program; Referring Provider Obstetrics & Gynecology; Visit Provider Obstetrics & Gynecology
DX: O42.02 Full-term premature rupture of membranes, onset of labor within 24 hours of rupture (principal); Z37.0 Single live birth; Z3A.40 40 weeks gestation of pregnancy
CPT/HCPCS: 36415; 59050; 84112; 85025; 86850; 86900; 86901; G0379; J2405; J2590; J2765